=== PATIENT | female | born 1950 | race Caucasian/White ===

== ENCOUNTER 2024-03-28 08:45 | Outpatient (CLI) | payer MEDICARE, OTHER ==
[~2024-03-28] VITALS: Ht 167.6 cm; Wt 70.3 kg
[2024-03-28 09:40] VITALS: PULSE 95; RESP 18; O2SAT 96
[2024-03-28] MEDS: albuterol 2.5 MG/3 ML nebule NEB ONE (09:50)
[2024-03-28 09:52] VITALS: PULSE 91; RESP 18
== END 2024-03-28 23:59 | disposition home or self-care (01) ==
LOC: RT 08:45
PROVIDERS: ATTEND Physician Assistant
DX: R94.2 Abnormal results of pulmonary function studies (principal); R06.02 Shortness of breath; R05.3 Chronic cough
CPT/HCPCS: 94060; 94760